=== PATIENT | male | born 1995 | race African-American/Black ===

== ENCOUNTER 2020-04-05 20:24 | Emergency (ER) | payer OTHER ==
[~2020-04-05] VITALS: Ht 172.7 cm; Wt 115.7 kg
[2020-04-05 21:31] VITALS: BP 151/103
== END 2020-04-05 21:31 | disposition home or self-care (01) ==
LOC: M.ERS 20:24
DX: U07.1 COVID-19 (principal)

== ENCOUNTER 2020-04-15 18:13 | Emergency (ER) | payer OTHER ==
[~2020-04-15] VITALS: Ht 172.7 cm; Wt 115.7 kg
[2020-04-15 19:18] VITALS: BP 132/68
== END 2020-04-15 19:18 | disposition home or self-care (01) ==
LOC: M.ERS 18:13
DX: U07.1 COVID-19 (principal)